=== PATIENT | male | born 1975 | race Caucasian/White ===

== ENCOUNTER 2016-04-13 13:42 | Emergency (ER) | payer OTHER ==
[~2016-04-13] VITALS: Ht 182.9 cm; Wt 83.9 kg
--- NOTE | 2016-04-13 14:53 | RADIOLOGY REPORT ---
EXAMINATION: XR HIP, LEFT CLINICAL INFORMATION: Rule out fracture. Fall from ladder. COMPARISON: None TECHNIQUE: Two views of the left hip. FINDINGS: The femur is well seated within the acetabulum. There is no fracture or dislocation. There is mild irregularity involving the left ischial tuberosity. A small avulsion fracture cannot be excluded. IMPRESSION: No left hip fracture. Probable small left ischial tuberosity avulsion fracture.
--- NOTE | 2016-04-13 15:27 | ED UPPER/LOWER EXTREMITY COMPL ---
History of Present Illness General Chief Complaint: Lower Extremity Injury Stated Complaint: LT LEG INJ Source: patient Exam Limitations: no limitations Vital Signs & Intake/Output Vital Signs & Intake/Output Vital Signs Date Time Temp Pulse Resp B/P Pulse O2 O2 Flow FiO2 Ox Delivery Rate 04/13 1601 76 110/84 04/13 1353 96.1 04/13 1348 96.1 86 16 105/70 97 Room Air Allergies Coded Allergies: aspirin (Severe, THROAT CLOSES, FACIAL SWELLING 04/13/16) Reconcile Medications Oxycodone HCl/Acetaminophen (Percocet 5-325 MG Tablet) 5 MG-325 MG TABLET 1 TAB PO 4 TIMES/DAY PRN pain Triage Note: PT STATES HE FELL OFF A LADDER ONTO GRASS. PT C/O LEFT HIP PAIN Triage Nurses Notes Reviewed? yes HPI: A few hours prior to arrival patient was on the 30 [address] ladder on his way down more than [facility] down when he fell off the ladder as the ladder was falling, he landed on his left lateral hip, he had a box and nails in his pocket, he has had pain in the left groin anterior aspect since. He was able to stand and walk. Pain initially was 10 out of 10, currently it is 7 out of 10. He took Motrin with some relief. He has worsening pain with weightbearing and with active motion at the left hip. He has no previous injuries to the area. No other injuries, no back pain no head pain no headache no nausea no vomiting no chest or abdominal pain no head injury no loss of consciousness no confusion no foot pain or heel pain. (NEY FRANCIS) Past History Travel History Traveled to [place] past 21 day No Medical History Any Pertinent Medical History? see below for history Endocrine: diabetes Surgical History Surgical History: none Psychosocial History What is your primary language Mozambican Tobacco Use: Current Daily Use Daily Tobacco Use Amount/Type: => 5 Cigarettes daily ETOH Use: denies use Illicit Drug Use: denies illicit drug use Family History Hx Contributory? No (NEY FRANCIS) Review of Systems Review of Systems Constitutional: Reports: see HPI. EENTM: Reports: no symptoms. Respiratory: Reports: no symptoms. Cardiovascular: Reports: no symptoms. Gastrointestinal/Abdominal: Reports: no symptoms. Genitourinary: Reports: no symptoms. Musculoskeletal: Reports: see HPI. Skin: Reports: no symptoms. Neurological/Psychological: Reports: no symptoms. Hematologic/Endocrine: Reports: no symptoms. Immunological: Reports: no symptoms. All Other Systems: Reviewed and Negative (NEY FRANCIS) Physical Exam Physical Exam General Appearance: well developed/nourished Comments: Well-developed well-nourished no apparent distress. HEENT: Atraumatic, extraocular motion intact Neck: Supple, no lymphadenopathy Back: Nontender no sign of injury or trauma. Respiratory: No respiratory distress Extremities: No edema, full range of motion. No pain or injury to the lower extremities. Examination of the pelvis shows a there is pain over the left ischium and mild increased pain with range of motion of the left hip. No shortening or rotation. Patient is able to actively straight leg raise off the bed but has significant pain with this. Neurovascularly intact. No knee pain or tenderness no lower leg foot or ankle pain or tenderness, Neuro: Alert and oriented x3 Psych: Mood affect normal, normal memory normal judgment. Skin: Warm and dry, no rash on exposed skin (NEY FRANCIS) Progress Differential Diagnosis: arterial insufficiency, cellulitis, CHF, compartment syndrome, contusion, dislocation, DVT, fracture, gout, septic arthritis, sprain, tendon injury Plan of Care: Orders Procedure Date/time Status Durable Medical Equipment 04/13 1549 Active Diagnostic Imaging: Viewed by Me: Radiology Read. Discussed w/RAD: Radiology Read. Radiology Impression: PATIENT: GLADYS WHITTEN PRESENT AGE: 41 PATIENT ACCOUNT NO: [id number] : 75 LOCATION: [facility] ORDERING PHYSICIAN: CARMENZA FRANCES DO (TBS) SERVICE DATE: 04/13/16 EXAM TYPE: RAD - XRY-HIP 2-3 VIEWS, LEFT EXAMINATION: XR HIP, LEFT CLINICAL INFORMATION: Rule out fracture. Fall from ladder. COMPARISON: None TECHNIQUE: Two views of the left hip. FINDINGS: The femur is well seated within the acetabulum. There is no fracture or dislocation. There is mild irregularity involving the left ischial tuberosity. A small avulsion fracture cannot be excluded. IMPRESSION: No left hip fracture. Probable small left ischial tuberosity avulsion fracture. DICTATED BY: CHAI HANNAH MD DATE/TIME DICTATED:04/13/161427 TEACHER SPECIALIST: MANUEL DATE/TIME TRANSCRIBED:04/13/161427 Comments: Patient with a suspected ISCHIAL fracture on x-ray, based on his mechanism I do not feel as though this is an avulsion fracture. He may partial weight bear on the left leg, he is given crutches, pain medication, he requires orthopedic follow-up prior to being cleared to go back to work. I do not suspect any other injury or intrapelvic injury. (NEY FRANCIS) Departure Departure Disposition: HOME OR SELF CARE Condition: Stable Clinical Impression Primary Impression: Pelvis ischium fracture Qualifiers: Encounter type: initial encounter Fracture type: closed Fracture morphology: other fracture Laterality: left Qualified Code: S32.692A - Other specified fracture of left ischium, initial encounter for closed fracture Referrals: DARIN ACOSTA,YOLANDA JOHN MD,JENNIFER (PCP/Family) Additional Instructions: Use crutches, partial weightbearing on your left leg. Take Percocet as needed for pain, Motrin for pain. Follow-up with occupational medicine next week and follow up with orthopedist as soon as possible, call to make an appointment. No work until you're cleared by occupational medicine or orthopedist Departure Forms: Customer Survey General Discharge Information Prescriptions: Current Visit Scripts Oxycodone HCl/Acetaminophen (Percocet 5-325 MG Tablet) 1 TAB PO 4 TIMES/DAY PRN pain #20 TAB (NEY FRANCIS) PA/DESK PEN SET ASSEMBLER Co-Sign Statement Statement: ED Attending supervision documentation- [X] I saw and evaluated the patient. I have also reviewed all the pertinent lab results and diagnostic results. I agree with the findings and the plan of care as documented in the PA's/DESK PEN SET ASSEMBLER's documentation. [X] I have reviewed the ED Record and agree with the PA's/DESK PEN SET ASSEMBLER's documentation. [] Additions or exceptions (if any) to the PAs/DESK PEN SET ASSEMBLER's note and plan are summarized below: [] (ZAYNAB ACOSTA,LAINEY Cotter)
[2016-04-13] MEDS ORDERED: PERCOCET 5-3251 EACH PO (15:40)
[2016-04-13 16:01] VITALS: BP 110/84
== END 2016-04-13 16:03 ==
LOC: ERH 13:42
DX: S32.602A Unspecified fracture of left ischium, initial encounter for closed fracture (principal); W11.XXXA Fall on and from ladder, initial encounter; Y93.89 Activity, other specified; Y92.9 Unspecified place or not applicable
CPT/HCPCS: 73502-LT